=== PATIENT | male | born 1945 | race Caucasian/White ===

== ENCOUNTER 2020-11-16 23:44 | Observation (INO) ==
[2020-11-16] MEDS ORDERED: NITROGLYCERIN SL 0.4 MG/TAB TAB SL PRN (23:58)
[2020-11-17] MEDS ORDERED: NITROGLYCERIN 2% OINTMENT 30GM TUBE ONE ×2 (00:07→06:04)
[2020-11-17] MEDS ORDERED: NITROGLYCERIN 2% OINTMENT 30GM TUBE EXT ONE (00:08)
[2020-11-17 00:24] LABS: Basophils # (auto) 0.02 K/uL (0-0.2); Basophils % (auto) 0.1 %; Eosinophils # (auto) 0.15 K/uL (0-0.5); Eosinophils % (auto) 0.8 %; Hematocrit (blood only) 37.1 % (42-52); Hemoglobin 12.4 g/dL (14.0-18.0); Immature Granulocytes # (auto) 0.07 K/uL (0.00-0.02); Immature Granulocytes % (auto) 0.4 %; Lymphocytes # (auto) 2.04 K/uL (1.2-3.4); Lymphocytes % (auto) 10.6 %; Mean Corpuscular Hemoglobin 35.2 pg (25-34); Mean Corpuscular Hgb Conc 33.4 g/dL (32-36); Mean Corpuscular Volume 105.4 fL (80-100); Mean Platelet Volume 10.9 fL (7.4-10.4); Monocytes # (auto) 2.42 K/uL (0.11-0.59); Monocytes % (auto) 12.6 %; Neutrophils # (auto) 14.49 K/uL (1.4-6.5); Neutrophils % (auto) 75.5 %; Platelet Count 183 K/uL (130-400); RDW Coefficient of Variation 14.4 % (11.5-14.5); RDW Standard Deviation 55.6 fL (36.4-46.3); Red Blood Count 3.52 M/uL (4.7-6.1); White Blood Count 19.19 K/uL (4.8-10.8)
[2020-11-17 00:31] LABS: Alanine Aminotransferase 20 U/L (12-78); Albumin Level 3.9 gm/dl (3.4-5.0); Aspartate Aminotransferase 8 U/L (15-37); BUN Creatinine Ratio 28.1 (10-20); Blood Urea Nitrogen 36 mg/dl (7-18); Calcium 9.4 mg/dl (8.5-10.1); Carbon Dioxide 27 mmol/L (21-32); Chloride 107 mmol/L (98-107); Creatinine Clr Calc Pharmacy 64.8 ml/min; Est GFR (African American) 63.6; Est GFR (Non-African American) 54.9; Glucose 117 mg/dl (70-99); Lipase 91 U/L (73-393); Potassium 3.9 mmol/L (3.5-5.1); Sodium 139 mmol/L (136-145)
[2020-11-17 00:36] LABS: Albumin Globulin Ratio 0.9 (0.9-2); Alkaline Phosphatase 95 U/L (45-117); Bilirubin,Total 0.5 mg/dl (0.2-1); Globulin 4.3 gm/dl (2.5-4.0); Total Protein 8.2 gm/dl (6.4-8.2); Troponin I < 0.015 ng/ml (0-0.045)
[2020-11-17 00:38] LABS: Partial Thromboplastin Ratio 0.9; Partial Thromboplastin Time 25.3 Seconds (21.0-31.0); Prothrombin Time 10.5 Seconds (9.0-12.0)
[2020-11-17] MEDS ORDERED: fentaNYL citrate 100 MCG/2 ML VIAL ONE (00:49)
[2020-11-17] MEDS ORDERED: niCARdipine HCL INJ 2.5 MG/ML 10 ML AMP ONE (00:49)
[2020-11-17] MEDS ORDERED: HEPARIN (PORCINE) 1000 UNIT/ML 10 ML (CATH LAB USE ONLY) ONE (00:49)
[2020-11-17] MEDS ORDERED: MIDAZOLAM HCL 1 MG/ML 2ML VIAL ONE (00:49)
[2020-11-17] MEDS ORDERED: NITROGLYCERIN/D5W 100MCG/ML 20ML SYR ONE (00:49)
[2020-11-17 02:05] LABS: Influenza A virus by PCR Negative (Neg); Influenza B virus by PCR Negative (Neg); RSV by PCR Negative (Neg); SARS CoV2 RNA(COVID-19) InHosp NEGATIVE (Negative)
[2020-11-17] MEDS ORDERED: OPTIRAY 320 125ml IV ONE (03:28)
--- NOTE | 2020-11-17 03:39 | Emergency Department Note ---
Impression & Plan Left-sided chest pain, Abnormal ECG ED Provider Note NAME: CHERIE ZELAYA AGE: 75 SEX: M ARRIVES VIA: Walk-In INFORMANT: Patient ED PROVIDER(S): Ashley Alegria MD CHIEF COMPLAINT: Left-sided chest pain PLAN: Disposition: Inpatient Condition: Fair MEDICAL DECISION MAKING: This patient was evaluated and appeared to be in no significant distress. IV access was obtained and laboratory work was drawn. An order for cardiac monitoring was placed and the patient is noted to be in a normal sinus rhythm at 77 bpm. Patient did take an aspirin earlier in the day. He was given a nitroglycerin tablet with some relief of his discomfort. Nitroglycerin paste was applied to the anterior chest wall. Each was performed and reveals ST elevation in the inferior leads. Previous EKG performed in October also revealed some subtle ST elevation in the inferior leads. The EKG was repeated approximately 10 minutes later and the ST segments remain elevated however there is also a Q wave component. Case was discussed with Dr. Pérez who supported calling a heart alert. Patient's laboratory work reveals a leukocytosis of 19.19, creatinine of 1.27 and a normal troponin of less than 0.015. Patient's initial ID now Covid swab is positive. The [employer] was canceled given the patient is stable and his troponin is normal. PCR quad screen was performed and reveals negative Covid, negative flu and negative RSV. Dr. Luther of the hospitalist service was consulted for admission and further management. Patient is aware of the plan and agrees. Triage Nursing notes reviewed. Prior medical records reviewed Differential diagnosis: Cardiac ischemia, aortic dissection, pulmonary embolism, pneumothorax, pneumonia, pericarditis, myocarditis, esophageal rupture, GERD, cholecystitis, pancreatitis, musculoskeletal, as well as other pathologies. ER treatment provided: Sublingual nitroglycerin Nitroglycerin paste Diagnostics interpreted by me: ECG: Normal sinus rhythm at 82 bpm, ST elevation of 2 mm in the inferior leads with Q waves noted. Normal QTC at 425. No PVC, no PAC. EKG #2: Normal sinus rhythm at 80 bpm, ST elevation persists in the inferior leads with Q waves noted. Normal QTC at 424. No PVC, no PAC. Cardiac Monitoring: An order for cardiac monitoring was placed and the patient is noted to be in a normal sinus rhythm at 77 bpm. Laboratory studies: Troponin is normal, less than 0.015, creatinine 1.27. WBC 19.19 Imaging studies: CTA CHEST: Heart is normal in size. Thoracic aorta appears normal. There is no pulmonary embolism. There is some scab centrilobular and paraseptal bullous changes at the pulmonary apices. There is subsegmental atelectasis at the lung bases. There is no confluent airspace consolidation. Impression: No pulmonary embolism Radiologist: Travon Duarte MD Study ready at 03:31 and initial results transmitted at 03:46 Consultation(s): Interventional cardiology, Dr. Pérez [facility] hospitalist, Dr. Luther HPI: 75/M arrives for evaluation of left-sided chest pain that began later this afternoon at approximately 2-3 PM. He states it was initially intermittent. He cannot correlate it necessarily with exertion. He does believe it was worse with deep inspiration. This evening prior to going to bed he noticed that the pain had returned. He initially thought that the pain would resolve but upon trying to lay down he noticed that the pain persisted. He did come to the hospital by private vehicle. He had taken aspirin 325 mg earlier today. He notes he is on aspirin and Plavix secondary to recent carotid stenting performed at [facility]. He states he had significant bruising of the anterior chest as well as the right groin. The procedure was done at the end of October. Patient denies any recent fevers, chills, cough, abdominal pain, vomiting or diarrhea. ROS: See above HPI for pertinent positives & negatives. A total of 10 systems reviewed and were otherwise negative. PAST MEDICAL HISTORY:See Below PAST SURGICAL HISTORY:See Below FAMILY HISTORY:See Below SOCIAL HISTORY:See Below HOME MEDICATIONS:See Below ALLERGIES:See Below PHYSICAL EXAMINATION: Vital signs reviewed. General: Well-appearing 75-year-old male, in no significant distress HEENT: No scleral icterus, PERRLA, neck supple. Moist mucous membranes. Postsurgical change noted to the right anterior neck. Ecchymosis that appears to be well-healing. Cardiovascular: Regular rate and rhythm, no extra sounds. Pulmonary: Clear to auscultation bilaterally, normal work of breathing. Abdomen: Soft, obese, nontender, nondistended, positive bowel sounds. Musculoskeletal: No peripheral edema. Significant ecchymosis that appears to be healing across the anterior chest/breasts. Nontender to palpation over the anterior chest wall. Neurologic: Patient awake alert and oriented x 3 Skin: Warm, dry, no rash Ashley Alegria MD Past Med/Surg History Medical History BPH (benign prostatic hyperplasia) Carotid atherosclerosis Hypertension Osteoarthritis Surgical History S/P carotid endarterectomy Social History Smoking Status: Former smoker Tobacco Type: Cigarettes Preferred Language: Wolof Feels Safe at Home: Yes Allergies Allergies Allergy/AdvReac Type Severity Reaction Status Date / Time allopurinol Allergy Unknown Verified 11/17/20 00:35 duloxetine [From Cymbalta] Allergy Unknown Verified 11/17/20 00:35 hydroxychloroquine Allergy Unknown Verified 11/17/20 00:35 [From Plaquenil] Home Meds Home Medications Medication Instructions Recorded Confirmed Aspir-Low 81 mg PO DAILY 11/17/20 11/17/20 amlodipine 10 mg PO DAILY 11/17/20 11/17/20 atorvastatin 40 mg PO QPM 11/17/20 11/17/20 clopidogrel 75 mg PO DAILY 11/17/20 11/17/20 finasteride 5 mg PO DAILY 11/17/20 11/17/20 furosemide 20 mg PO DAILY 11/17/20 11/17/20 lisinopril-hydrochlorothiazide 1 tab PO DAILY 11/17/20 11/17/20 probenecid 500 mg PO BID 11/17/20 11/17/20 tamsulosin 0.4 mg PO QPM 11/17/20 11/17/20 Previous Rx's Medication Instructions Recorded methocarbamol 500 mg PO TID PRN #20 tab 10/30/20 Results & Data (ED) Vital Signs Vital Signs - 24 hr 11/16/20 23:52 11/16/20 23:55 11/16/20 23:56 Temperature 36.8 C Temperature Source Oral Pulse Rate 79 77 Pulse Rate from SpO2 Sensor 78 Respiratory Rate 22 17 Respiratory Effort / Characteristics Non-Labored Spontaneous Respiratory Depth Normal Blood Pressure 143/69 H 143/69 H Blood Pressure Mean 93 100 Pulse Oximetry 99 100 100 Oxygen Delivery Method Room Air Room Air Room Air Oxygen Flow Rate Sepsis Recent Fever Within 48 Hours No Sepsis New/Unexplained Change in Mental Status N/A Sepsis Action Taken by Nursing No Action Required 11/16/20 23:58 11/17/20 00:01 11/17/20 00:04 Temperature Temperature Source Pulse Rate 78 78 79 Pulse Rate from SpO2 Sensor 78 79 78 Respiratory Rate 23 25 H 21 Respiratory Effort / Characteristics Respiratory Depth Blood Pressure 169/78 H 161/76 H 141/72 H Blood Pressure Mean 134 108 96 Pulse Oximetry 99 99 99 Oxygen Delivery Method Room Air Room Air Room Air Oxygen Flow Rate Sepsis Recent Fever Within 48 Hours Sepsis New/Unexplained Change in Mental Status Sepsis Action Taken by Nursing 11/17/20 00:33 11/17/20 01:00 11/17/20 01:15 Temperature Temperature Source Pulse Rate 82 74 74 Pulse Rate from SpO2 Sensor 73 74 73 Respiratory Rate 27 H 22 16 Respiratory Effort / Characteristics Respiratory Depth Blood Pressure 150/72 H 165/68 H Blood Pressure Mean 88 106 Pulse Oximetry 100 100 99 Oxygen Delivery Method Room Air Nasal Cannula Nasal Cannula Oxygen Flow Rate 2 2 Sepsis Recent Fever Within 48 Hours Sepsis New/Unexplained Change in Mental Status Sepsis Action Taken by Nursing 11/17/20 01:30 11/17/20 02:14 Temperature Temperature Source Pulse Rate 71 65 Pulse Rate from SpO2 Sensor 71 64 Respiratory Rate 16 18 Respiratory Effort / Characteristics Respiratory Depth Blood Pressure 158/72 H 140/62 Blood Pressure Mean 109 82 Pulse Oximetry 100 100 Oxygen Delivery Method Nasal Cannula Oxygen Flow Rate 2 Sepsis Recent Fever Within 48 Hours Sepsis New/Unexplained Change in Mental Status Sepsis Action Taken by Nursing Laboratory Data Result diagrams: 11/16/20 23:53 11/16/20 23:53 Lab Results 11/16/20 11/16/20 11/16/20 Range/Units 23:53 23:53 23:53 WBC 19.19 H (4.8-10.8) K/uL RBC 3.52 L (4.7-6.1) M/uL Hgb 12.4 L (14.0-18.0) g/dL Hct 37.1 L (42-52) % MCV 105.4 H (80-100) fL MCH 35.2 H (25-34) pg MCHC 33.4 (32-36) g/dL RDW Std Deviation 55.6 H (36.4-46.3) fL RDW Coeff of Maliha 14.4 (11.5-14.5) % Plt Count 183 (130-400) K/uL MPV 10.9 H (7.4-10.4) fL Immature Gran % (Auto) 0.4 % Neut % (Auto) 75.5 % Lymph % (Auto) 10.6 % Ralls % (Auto) 12.6 % Eos % (Auto) 0.8 % Baso % (Auto) 0.1 % Neut # (Auto) 14.49 H (1.4-6.5) K/uL Lymph # (Auto) 2.04 (1.2-3.4) K/uL Ralls # (Auto) 2.42 H (0.11-0.59) K/uL Eos # (Auto) 0.15 (0-0.5) K/uL Baso # (Auto) 0.02 (0-0.2) K/uL Immature Gran # (Auto) 0.07 H (0.00-0.02) K/uL PT 10.5 (9.0-12.0) Seconds INR 1.0 (0.9-1.1) APTT 25.3 (21.0-31.0) Seconds PTT Ratio 0.9 Sodium 139 (136-145) mmol/L Potassium 3.9 (3.5-5.1) mmol/L Chloride 107 (98-107) mmol/L Carbon Dioxide 27 (21-32) mmol/L Anion Gap 5.0 (3-11) BUN 36 H (7-18) mg/dl Creatinine 1.27 (0.6-1.4) mg/dl Est Cr Clr Drug Dosing 64.8 ml/min Est GFR ( Amer) 63.6 Est GFR (Non-Af Amer) 54.9 BUN/Creatinine Ratio 28.1 H (10-20) Glucose 117 H (70-99) mg/dl Calcium 9.4 (8.5-10.1) mg/dl Total Bilirubin 0.5 (0.2-1) mg/dl AST 8 L (15-37) U/L ALT 20 (12-78) U/L Alkaline Phosphatase 95 (45-117) U/L Troponin I < 0.015 (0-0.045) ng/ml Total Protein 8.2 (6.4-8.2) gm/dl Albumin 3.9 (3.4-5.0) gm/dl Globulin 4.3 H (2.5-4.0) gm/dl Albumin/Globulin Ratio 0.9 (0.9-2) Lipase 91 (73-393) U/L COVID-19 Eval Order SARS-CoV-2 (PCR) (Negative) Influenza Type A (PCR) (Neg) Influenza Type B (PCR) (Neg) RSV (RT-PCR) (Neg) SARS-CoV-2, RNA, NAAT (NEGATIVE) 11/17/20 11/17/20 11/17/20 Range/Units 00:34 00:34 01:15 WBC (4.8-10.8) K/uL RBC (4.7-6.1) M/uL Hgb (14.0-18.0) g/dL Hct (42-52) % MCV (80-100) fL MCH (25-34) pg MCHC (32-36) g/dL RDW Std Deviation (36.4-46.3) fL RDW Coeff of Maliha (11.5-14.5) % Plt Count (130-400) K/uL MPV (7.4-10.4) fL Immature Gran % (Auto) % Neut % (Auto) % Lymph % (Auto) % Ralls % (Auto) % Eos % (Auto) % Baso % (Auto) % Neut # (Auto) (1.4-6.5) K/uL Lymph # (Auto) (1.2-3.4) K/uL Ralls # (Auto) (0.11-0.59) K/uL Eos # (Auto) (0-0.5) K/uL Baso # (Auto) (0-0.2) K/uL Immature Gran # (Auto) (0.00-0.02) K/uL PT (9.0-12.0) Seconds INR (0.9-1.1) APTT (21.0-31.0) Seconds PTT Ratio Sodium (136-145) mmol/L Potassium (3.5-5.1) mmol/L Chloride (98-107) mmol/L Carbon Dioxide (21-32) mmol/L Anion Gap (3-11) BUN (7-18) mg/dl Creatinine (0.6-1.4) mg/dl Est Cr Clr Drug Dosing ml/min Est GFR ( Amer) Est GFR (Non-Af Amer) BUN/Creatinine Ratio (10-20) Glucose (70-99) mg/dl Calcium (8.5-10.1) mg/dl Total Bilirubin (0.2-1) mg/dl AST (15-37) U/L ALT (12-78) U/L Alkaline Phosphatase (45-117) U/L Troponin I (0-0.045) ng/ml Total Protein (6.4-8.2) gm/dl Albumin (3.4-5.0) gm/dl Globulin (2.5-4.0) gm/dl Albumin/Globulin Ratio (0.9-2) Lipase (73-393) U/L COVID-19 Eval Order Covid19 [facility] at [facility] SARS-CoV-2 (PCR) (Negative) Influenza Type A (PCR) (Neg) Influenza Type B (PCR) (Neg) RSV (RT-PCR) (Neg) SARS-CoV-2, RNA, NAAT POSITIVE A* (NEGATIVE) 11/17/20 Range/Units 01:15 WBC (4.8-10.8) K/uL RBC (4.7-6.1) M/uL Hgb (14.0-18.0) g/dL Hct (42-52) % MCV (80-100) fL MCH (25-34) pg MCHC (32-36) g/dL RDW Std Deviation (36.4-46.3) fL RDW Coeff of Maliha (11.5-14.5) % Plt Count (130-400) K/uL MPV (7.4-10.4) fL Immature Gran % (Auto) % Neut % (Auto) % Lymph % (Auto) % Ralls % (Auto) % Eos % (Auto) % Baso % (Auto) % Neut # (Auto) (1.4-6.5) K/uL Lymph # (Auto) (1.2-3.4) K/uL Ralls # (Auto) (0.11-0.59) K/uL Eos # (Auto) (0-0.5) K/uL Baso # (Auto) (0-0.2) K/uL Immature Gran # (Auto) (0.00-0.02) K/uL PT (9.0-12.0) Seconds INR (0.9-1.1) APTT (21.0-31.0) Seconds PTT Ratio Sodium (136-145) mmol/L Potassium (3.5-5.1) mmol/L Chloride (98-107) mmol/L Carbon Dioxide (21-32) mmol/L Anion Gap (3-11) BUN (7-18) mg/dl Creatinine (0.6-1.4) mg/dl Est Cr Clr Drug Dosing ml/min Est GFR ( Amer) Est GFR (Non-Af Amer) BUN/Creatinine Ratio (10-20) Glucose (70-99) mg/dl Calcium (8.5-10.1) mg/dl Total Bilirubin (0.2-1) mg/dl AST (15-37) U/L ALT (12-78) U/L Alkaline Phosphatase (45-117) U/L Troponin I (0-0.045) ng/ml Total Protein (6.4-8.2) gm/dl Albumin (3.4-5.0) gm/dl Globulin (2.5-4.0) gm/dl Albumin/Globulin Ratio (0.9-2) Lipase (73-393) U/L COVID-19 Eval Order SARS-CoV-2 (PCR) NEGATIVE (Negative) Influenza Type A (PCR) Negative (Neg) Influenza Type B (PCR) Negative (Neg) RSV (RT-PCR) Negative (Neg) SARS-CoV-2, RNA, NAAT (NEGATIVE) Administered Medications Nitroglycerin (Nitroglycerin Sl 0.4 Mg/Tab Tab) 0.4 mg SL UD PRN PRN Reason: Chest Pain Stop: 12/16/20 23:57 Last Admin: 11/17/20 00:02 Dose: 0.4 mg Documented by: [id number] Discontinued Medications Ioversol (Optiray 320 125ml) 125 ml IV ONCE ONE Stop: 11/17/20 03:29 Last Admin: 11/17/20 03:29 Dose: 93 ml Documented by: [id number] Nitroglycerin (Nitroglycerin 2% Ointment 30gm Tube) Confirm Administered Dose 18 inch .ROUTE .STK-MED ONE Stop: 11/17/20 00:08 Last Admin: 11/17/20 00:08 Dose: 1 inch Documented by: [id number] Nitroglycerin (Nitroglycerin 2% Ointment 30gm Tube) 1 inch EXT NOW ONE Stop: 11/17/20 00:09 Last Admin: 11/17/20 00:13 Dose: Not Given Documented by: [id number] Discharge Plan Visit Data Chief Complaint: Chest Pain Stated Complaint: CHEST PAIN, AND SOB ED Provider: Ashely Alegria Discharge Problem: Left-sided chest pain, Abnormal ECG Patient Disposition: Admitted As Inpatient Forms Stand Alone Forms: [facility] Prescriptions Prescriptions: No Action methocarbamol 500 mg tablet 500 mg PO TID PRN (Reason: muscle spasm) Qty: 20 RF: 0 lisinopril-hydrochlorothiazide 20-12.5 mg tablet 1 tab PO DAILY RF: 0 clopidogrel 75 mg tablet 75 mg PO DAILY RF: 0 amlodipine 10 mg tablet 10 mg PO DAILY RF: 0 furosemide 20 mg tablet 20 mg PO DAILY RF: 0 probenecid 500 mg tablet 500 mg PO BID RF: 0 atorvastatin 40 mg tablet 40 mg PO QPM RF: 0 finasteride 5 mg tablet 5 mg PO DAILY RF: 0 tamsulosin 0.4 mg capsule 0.4 mg PO QPM RF: 0 Aspir-Low 81 mg 81 mg PO DAILY RF: 0 Referrals Referrals: Ck Bell MD [Primary Care Provider] -
--- NOTE | 2020-11-17 04:31 | History and Physical Report ---
DATE OF ADMISSION: 11/17/2020 CHIEF COMPLAINT: Chest pain. HISTORY OF PRESENT ILLNESS: This is a 75-year-old male with past medical history significant for gout, hyperlipidemia, hypertension, chronic kidney disease stage III, paroxysmal supraventricular tachycardia, BPH, bilateral carpal tunnel syndrome, generalized osteoarthritis, degenerative disc disease, cervical impingement syndrome of left shoulder, myelodysplastic syndrome low grade, monocytosis, tobacco abuse, history of recent right common carotid artery stent placement, who presents with chest pain. The patient says since yesterday afternoon, he has on and off chest pain on the left side, roughly up to 8-9 in the night, the pain was constant. The pain is more with deep breath, not associated with any activity. There was no radiation, no sweating. He has some dizziness, some shortness of breath. No cough, no runny nose. He had a sore throat after a recent procedure, but that has resolved. No earache, no loss of sense of smell or taste. No exposure to any COVID patients. Lives with his . Currently, pain is improved. It is only 3/10 in severity when he takes a deep breath. No nausea, no abdominal pain. He was constipated, but it resolved with Metamucil. Denies any blood in the stools or black stools. Normal bladder movements. He has had some swelling in the legs, but it resolved with the Lasix. Ambulating okay at home. ALLERGIES: ALLOPURINOL, CYMBALTA, PLAQUENIL. PAST MEDICAL HISTORY: As mentioned above. PAST SURGICAL HISTORY: Cataract surgery, bilateral colonoscopy, hemorrhoid ligation, carotid stent with distal protection done on 10/27/2020. MEDICATIONS: The patient is currently on amlodipine 10 mg p.o. daily, aspirin 81 mg p.o. daily, atorvastatin 40 mg p.o. daily, Plavix 75 mg p.o. daily, finasteride 5 mg p.o. daily, furosemide 20 mg p.o. daily, lisinopril/hydrochlorothiazide 20/12.5 mg p.o. daily, methocarbamol 500 mg p.o. t.i.d. p.r.n., probenecid 500 mg p.o. b.i.d., Flomax 0.4 mg p.o. p.m. FAMILY HISTORY: Significant for father had pancreatic cancer; mother had heart disorder; sister has mental disorder. SOCIAL HISTORY: Lives with his . Former smoker, quit on 10/09/2020, smoked an average of a quarter pack a day for 60 years. Alcohol occasionally. No drug use. REVIEW OF SYSTEMS: As per HPI. Rest of the review of systems negative. PHYSICAL EXAMINATION: GENERAL: The patient is of moderate build, not in acute distress. VITAL SIGNS: Temperature 36.8, pulse 64, respiratory rate 18, blood pressure 140/62, oxygen 100% on 2 liters. HEENT: Pupils equal, round, reactive to light. Oral mucosa moist. NECK: No JVD, no neck masses seen. CARDIOVASCULAR: S1, S2 heard. Regular rate and rhythm. No murmur, no gallop. RESPIRATORY SYSTEM: Normal AP diameter. No accessory muscle use. No wheezing, no crackles. ABDOMEN: Soft, bowel sounds present, nontender. No distention. CENTRAL NERVOUS SYSTEM: Cranial nerves II-XII grossly intact, nonfocal. EXTREMITIES: No edema, no erythema. SKIN: Some bruises seen on the chest region. LABORATORY DATA: WBC 19, hemoglobin 12.4, hematocrit 37.1, platelets 183. PT 10.5, INR 1, APTT 25.3. Sodium 139, potassium 3.9, chloride 107, bicarbonate 27, BUN 36, creatinine 1.2, serum glucose 117, calcium 9.4, total bilirubin 0.5, AST 8, ALT 20, alkaline phosphatase 95, troponin I less than 0.015. Initial SARS-CoV2 Kumar test was positive, but SARS-CoV-2 PCR with Cepheid was negative. IMAGING: Chest x-ray, no acute findings. CTA of the chest,preliminary report unremarkable. EKG: Normal sinus rhythm at a rate of 82 with some history of questionable ST elevation in the inferior leads. Those ST elevations were there when recent EKG was done on 10/29/2020, but they are more pronounced now. ASSESSMENT AND PLAN: This is a 75-year-old male who presents with chest pain. 1. Chest pain: Started yesterday afternoon. EKG showed some ST elevation in the inferior leads, but the recent EKG on 10/29/[address] elevation in the inferior leads, but there are more pronounced. Cardiac heart alert was called, but because his symptoms are from yesterday afternoon and still his troponin is negative, cath was deferred at this time. The patient currently says pain is more with taking deep breath. His initial COVID test came back positive with Kumar test, but Cepheid test came back negative.And Also CTA chest was negative study. Will Observe in the tele floor. Consult cardiology in the a.m. Serial enzymes, echocardiogram. 2. History of carotid artery stenosis, status post recent right carotid stent. Continue aspirin, Plavix, and statin.Follow up with vascular surgery. 3. History of hypertension: Continue his lisinopril, hydrochlorothiazide, amlodipine. We will monitor his blood pressure. $. Recent epistaxis and skin bruising after the carotid stent. Mostly thought to be from aspirin and Plavix. 4. Hyperlipidemia: Continue statin. 5. Benign prostatic hypertrophy: Continue Proscar and Flomax. 6. Chronic kidney disease stage III: Creatinine is 1.27. We will follow the labs. 7. History of paroxysmal supraventricular tachycardia: We will monitor in the tele. 8. History of gout, on probenecid. 9. Generalized osteoarthritis: Pain control. 10. History of myelodysplastic syndrome, low grade, follow up with PCP. 11. Deep venous thrombosis prophylaxis: Sequential compression devices for now. 12. Disposition: Closely monitor and observe in tele floor. Level 1 full code. Expect to discharge home and follow with family doctor. Addendum: Again complained of chest pain in ER. EKG no change.Repeat troponin pending. Was Placed on nitro paste. Will follow. [facility]
[2020-11-17] MEDS ORDERED: POLYETHYLENE (MIRALAX) 17 GM PACK PO PRN (07:08)
[2020-11-17] MEDS ORDERED: NITROGLYCERIN SL 0.4 MG/TAB TAB SL PRN (07:08)
[2020-11-17] MEDS ORDERED: METHOCARBAMOL 500 MG TABLET PO PRN (07:08)
[2020-11-17] MEDS ORDERED: ONDANSETRON INJ 2 MG/ML 2 ML VIAL IV PRN (07:08)
[2020-11-17] MEDS ORDERED: ACETAMINOPHEN 325 MG TAB PO PRN (07:08)
--- NOTE | 2020-11-17 07:20 | CT Scan Report ---
CT angio chest PE protocol CT DOSE: 735.78 mGy.cm HISTORY: 75 years-old Male with PE. Acute shortness of breath with chest pain and pressure TECHNIQUE: Multiple CTA images of the chest were obtained after the intravenous administration of 93 ml Optiray 320. Coronal and sagittal MIPS were obtained from the axial data set and were submitted f or review. All measurements were obtained according to NASCET criteria. A dose lowering technique wa s utilized adhering to the principles of ALARA. COMPARISON: Chest radiograph of same day FINDINGS: CTA: The heart is mildly enlarged. Moderate coronary artery calcifications. No thoracic aortic aneurysm or dissection. Patency of the imaged great vessels. The pulmonary arterial tree is opacified to the lev el of the segmental branches and demonstrates no filling defects to suggest thromboembolic disease. CT CHEST: Unremarkable thyroid. There is no adenopathy. No pneumothorax, pleural effusion or overt pulmonary ed nikki. Mild emphysema. Bronchial wall thickening suggestive of bronchitis. Dependent subsegmental groun dglass and minimal linear consolidative bibasilar opacities are noted. There are no suspicious pulmon new nodules or masses. Mild tracheobronchial secretions. Tiny hiatal hernia. No acute process of the imaged upper abdomen. Gynecomastia. Bones appear intact. No acute fracture. IMPRESSION: 1. No pulmonary emboli. 2. Emphysema with bronchitis and mild tracheobronchial secretions. 3. Mild dependent bibasilar opacities suggest atelectasis. ACT 112: Negative or not required by law. The above report was generated using voice recognition software. It may contain grammatical, syntax o r spelling errors. Electronically signed by: Alvin Mann M.D. 11/17/2020 7:19 AM
--- NOTE | 2020-11-17 07:56 | XRay Report ---
XR chest 1V portable HISTORY: 75 years-old Male Chest Pain acute atypical chest pain COMPARISON: CTA of the chest of same day TECHNIQUE: Portable AP view of the chest FINDINGS: Cardiac silhouette is upper limits of normal in size. Emphysema. Linear subsegmental bibasilar densit ies/interstitial coarsening. There is no pneumothorax, pleural effusion, or overt pulmonary edema. De generative changes of the shoulders and spine. Mid thoracic dextroscoliosis. IMPRESSION: 1. Linear bibasilar densities suggest atelectasis/scarring. 2. Mild emphysema. ACT 112: Negative or not required by law. The above report was generated using voice recognition software. It may contain grammatical, syntax o r spelling errors. Electronically signed by: Alvin Mann M.D. 11/17/2020 7:54 AM
[2020-11-17 08:01] LABS: Basophils # (auto) 0.01 K/uL (0-0.2); Basophils % (auto) 0.1 %; Eosinophils # (auto) 0.04 K/uL (0-0.5); Eosinophils % (auto) 0.3 %; Hematocrit (blood only) 34.8 % (42-52); Hemoglobin 11.4 g/dL (14.0-18.0); Immature Granulocytes # (auto) 0.03 K/uL (0.00-0.02); Immature Granulocytes % (auto) 0.2 %; Lymphocytes # (auto) 1.08 K/uL (1.2-3.4); Lymphocytes % (auto) 7.2 %; Mean Corpuscular Hemoglobin 34.2 pg (25-34); Mean Corpuscular Hgb Conc 32.8 g/dL (32-36); Mean Corpuscular Volume 104.5 fL (80-100); Mean Platelet Volume 10.7 fL (7.4-10.4); Monocytes # (auto) 1.98 K/uL (0.11-0.59); Monocytes % (auto) 13.2 %; Neutrophils # (auto) 11.88 K/uL (1.4-6.5); Platelet Count 187 K/uL (130-400); RDW Coefficient of Variation 14.3 % (11.5-14.5); Red Blood Count 3.33 M/uL (4.7-6.1); White Blood Count 15.02 K/uL (4.8-10.8)
[2020-11-17 08:35] LABS: BUN Creatinine Ratio 27.7 (10-20); Blood Urea Nitrogen 34 mg/dl (7-18); Calcium 9.8 mg/dl (8.5-10.1); Carbon Dioxide 23 mmol/L (21-32); Chloride 108 mmol/L (98-107); Creatinine Clr Calc Pharmacy 66.8 ml/min; Est GFR (African American) 67.5; Est GFR (Non-African American) 58.2; Glucose 112 mg/dl (70-99); Magnesium 2.1 mg/dl (1.8-2.4); Potassium 4.2 mmol/L (3.5-5.1); Sodium 139 mmol/L (136-145)
[2020-11-17 08:41] LABS: Troponin I < 0.015 ng/ml (0-0.045)
--- NOTE | 2020-11-17 08:47 | Hospitalist Progress Note ---
Date of Service November 17, 2020 Assessment & Plan (1) Left-sided chest pain: (2) Abnormal ECG: (3) BPH (benign prostatic hyperplasia): (4) Hypertension: (5) Carotid atherosclerosis: ASSESSMENT AND PLAN: This is a 75-year-old male who presents with chest pain. 1. Chest pain: Started yesterday afternoon. EKG showed some ST elevation in the inferior leads, but the recent EKG on 10/29/[address] elevation in the inferior leads, but there are more pronounced. Cardiac heart alert was called, but because his symptoms are from yesterday afternoon and still his troponin is negative, cath was deferred at this time. The patient currently says pain is more with taking deep breath. His initial COVID test came back positive with Kumar test, but Cepheid test came back negative. And Also CTA chest was negative study. Will Observe in the tele floor. Cardiology on case. Serial enzymes, No echocardiogram sec to +Covid test even though repeat was neg-w/u in office. 2. History of carotid artery stenosis, status post recent right carotid stent. Continue aspirin, Plavix, and statin. Follow up with vascular surgery. 3. History of hypertension: Continue his lisinopril, hydrochlorothiazide, amlodipine. We will monitor his blood pressure. Recent epistaxis and skin b ruising after the carotid stent. Mostly thought to be from aspirin and Plavix. 4. Hyperlipidemia: Continue statin. 5. Benign prostatic hypertrophy: Continue Proscar and Flomax. 6. Chronic kidney disease stage III: Creatinine is 1.27. We will follow the labs. 7. History of paroxysmal supraventricular tachycardia: We will monitor in the tele. 8. History of gout, on probenecid. 9. Generalized osteoarthritis: Pain control. 10. History of myelodysplastic syndrome, low grade, follow up with PCP. 11. Deep venous thrombosis prophylaxis: Sequential compression devices for now. 12. Disposition: Closely monitor and observe in tele floor. Level 1 full code. Expect to discharge home and follow with family doctor later today. Labs checked ROS-No Headache, No Visual Changes, No Nausea, No Vomiting, No Fever, No Chills, No Neck Pain or Stiffness, +L sided lateral Chest Pain worse c inspiration, No Palpitations, No SOB, No ECHEVERRIA, No Cough, No Sputum, No Wheezing, Mild epigastric Abdominal Pain, No Diarrhea, No Hematemesis, No Hemoptysis, No Unexpected Weight Loss, No Flank pain, No Melena, No Hematochezia, No Frequency, No Urgency, No Burning, No Hematuria, No Rashes, No Diaphoresis. Appetite is Normal Physical Exam Gen-AAO x 3, NAD, Afebrile, CP not reproducible Head-NCAT, EOMI, PERRLA, Anicteric Sclera, No Posterior Pharyngeal Erythema Neck-Supple, No JVD, No Thyromegaly, No Masses, No LAD, No Bruits Lungs-Clear to Auscultation Bilaterally, No Rales, No Rhonchi, No Wheezing, No Crepitus Chest-No S4, +S1, +S2, No S3, No Murmurs, No Rubs, No Gallops, No Ectopy Abdomen-Soft, Bowel Sounds Present, Non Tender, Non Distended, No Hepatomegaly, No Splenomegaly, No Palpable Masses, No Rebound, No Rigidity, No Guarding Musculoskeletal-Full Range of Motion Bilaterally, No CVAT Extremities-No Cyanosis, No Clubbing, No Edema Nuero-Cranial Nerves II-XII grossly intact, Motor WNL, DTRs WNL, Strength WNL, Non Focal Psych-Normal Mood Admission and Anticipated Discharge Date Admission Date: November 17, 2020 Results & Data Results & Data ([facility]) Vital Signs (Past 12 Hours) Vital Signs Temp Pulse Pulse Resp BP BP Pulse Ox 11/17/20 08:31 66 11/17/20 07:08 36.8 C 64 20 99/55 L 96 11/17/20 06:27 36.7 C 66 18 163/75 H 98 11/17/20 05:30 66 17 151/67 H 98 11/17/20 05:00 60 24 144/72 H 97 11/17/20 04:30 66 23 147/72 H 98 11/17/20 04:00 60 20 147/67 H 97 11/17/20 03:00 58 L 24 125/66 96 11/17/20 02:30 61 17 121/64 97 11/17/20 02:14 65 18 140/62 100 11/17/20 01:30 71 16 158/72 H 100 11/17/20 01:15 74 16 99 11/17/20 01:00 74 22 165/68 H 100 11/17/20 00:33 82 27 H 150/72 H 100 11/17/20 00:04 79 21 141/72 H 99 11/17/20 00:01 78 25 H 161/76 H 99 11/16/20 23:58 78 23 169/78 H 99 11/16/20 23:56 100 11/16/20 23:55 77 17 143/69 H 100 11/16/20 23:52 36.8 C 79 22 143/69 H 99
[2020-11-17] MEDS ORDERED: FUROSEMIDE 20 MG TAB PO SCH (09:00)
[2020-11-17] MEDS ORDERED: LISINOPRIL/HCTZ 20/12.5MG 1 TAB TAB PO SCH (09:00)
[2020-11-17] MEDS: ASPIRIN 81 MG ECTAB PO SCH (09:09)
[2020-11-17] MEDS: CLOPIDOGREL BISULFATE 75 MG TAB PO SCH (09:12)
[2020-11-17] MEDS: amLODIPine BESYLATE 5 MG TAB PO SCH (09:12)
[2020-11-17] MEDS: PROBENECID 500 MG TAB PO SCH ×2 (09:13→23:08)
[2020-11-17] MEDS: FINASTERIDE 5 MG TAB PO SCH (09:14)
--- NOTE | 2020-11-17 09:46 | Electrocardiogram Report ---
Test Reason : Blood Pressure : / mmHG Vent. Rate : 082 BPM Atrial Rate : 082 BPM P-R Int : 170 ms QRS Dur : 084 ms QT Int : 364 ms P-R-T Axes : 017 033 068 degrees QTc Int : 425 ms Normal sinus rhythm Inferior infarct , possibly acute Abnormal ECG When compared with ECG of 29-OCT-2020 21:15, Vent. rate has increased BY [address] elevation is more prominent now Confirmed by Freddy Ponce ([id number]) on 11/17/2020 9:45:33 AM Referred By: REFERRED SELF Confirmed By:Freddy Ponce
--- NOTE | 2020-11-17 09:46 | Electrocardiogram Report ---
Test Reason : Blood Pressure : / mmHG Vent. Rate : 080 BPM Atrial Rate : 080 BPM P-R Int : 162 ms QRS Dur : 086 ms QT Int : 368 ms P-R-T Axes : 036 029 067 degrees QTc Int : 424 ms Normal sinus rhythm Inferior infarct (cited on or before 16-NOV-2020) Abnormal ECG When compared with ECG of 16-NOV-2020 23:52, (unconfirmed) No significant change was found Confirmed by Freddy Ponce ([id number]) on 11/17/2020 9:46:11 AM Referred By: REFERRED SELF Confirmed By:Freddy Ponce
--- NOTE | 2020-11-17 09:46 | Electrocardiogram Report ---
Test Reason : Blood Pressure : / mmHG Vent. Rate : 077 BPM Atrial Rate : 077 BPM P-R Int : 178 ms QRS Dur : 084 ms QT Int : 378 ms P-R-T Axes : 048 026 065 degrees QTc Int : 427 ms Normal sinus rhythm Inferior infarct (cited on or before 16-NOV-2020) Abnormal ECG When compared with ECG of 16-NOV-2020 23:53, (unconfirmed) No significant change was found Confirmed by Freddy Ponce ([id number]) on 11/17/2020 9:46:21 AM Referred By: REFERRED SELF Confirmed By:Freddy Ponce
--- NOTE | 2020-11-17 09:49 | Electrocardiogram Report ---
Test Reason : Blood Pressure : / mmHG Vent. Rate : 062 BPM Atrial Rate : 062 BPM P-R Int : 170 ms QRS Dur : 086 ms QT Int : 398 ms P-R-T Axes : 055 023 058 degrees QTc Int : 403 ms Normal sinus rhythm ST elevation consider inferolateral injury or acute infarct Abnormal ECG When compared with ECG of 17-NOV-2020 00:12, (unconfirmed) No significant change was found Confirmed by Freddy Ponce ([id number]) on 11/17/2020 9:49:07 AM Referred By: REFERRED SELF Confirmed By:Freddy Ponce
--- NOTE | 2020-11-17 10:42 | Cardiology Consultation ---
Date of Consultation November 17, 2020 Assessment & Plan (1) Left-sided chest pain: (2) Abnormal ECG: (3) Hypertension: (4) Carotid atherosclerosis: (5) History of tobacco abuse: (6) Hyperlipidemia: (7) Cervical nerve root impingement: It was my pleasure to see Mr. Ornelas in cardiac consultation today. His presentation is rather perplexing given his description of the discomfort, ST segment elevations in the inferior leads without reciprocal changes, initial positive Covid screen and negative troponins x3. He is now ruled out from Covid and an echocardiogram will be obtained. Should any significant wall motion abnormalities be present then consideration will be given to cardiac catheterization versus further ischemic work-up. His blood pressure little on the low side right now and I will give him a bolus of normal saline and for completeness sake he will be started on a heparin drip as well. His outpatient antihypertensives will be held. But his aspirin, atorvastatin and Plavix will be continued uninterrupted. History of Present Illness Reason for Consultation: Chest pain Requesting Physician: Dr. Luther Attending Physician: Adriano Quick, History of Present Illness It was my pleasure to see Mr. Ornelas in cardiac consultation today. He is a 75 -year-old gentleman who presented to the emergency department on 11/16/2020 with complaints of chest discomfort. He states that he was helping his daughter take down [employer] decorations that evening when he suddenly developed chest discomfort. He described it as a achy/sharp sensation that started in his center of his chest and radiated across his left precordium. The onset was also associated with shortness of breath. He denied any associated diaphoresis, nausea, palpitations or lightheadedness. He states that the pain was worse with deep inhalation but not with upper extremity movement. He denied any previous similar episodes. The discomfort continue to wax and wane until his from in the emergency department. Upon arrival his EKG was noted to have ST segment elevations inferiorly without reciprocal changes. His initial troponin was unremarkable and his initial Covid screen came back positive. Given the positive Covid and the fact that his chest discomfort had resolved at that time a heart alert was canceled. He was admitted to telemetry and again he states the discomfort seems to wax and wane overnight again worsened with deep inhalation. He thinks there may been some improvement with the addition of nitro paste. His troponin has been negative x3. Past medical history: 1. Carotid stenosis status post stenting 2. Tobacco abuse 3. Asymptomatic PSVT 4. Cervical impingement syndrome 5. Myelodysplastic syndrome low-grade 6. Hypertension 7. Dyslipidemia Allergies Allergy/AdvReac Type Severity Reaction Status Date / Time allopurinol Allergy Unknown Verified 11/17/20 00:35 duloxetine [From Cymbalta] Allergy Unknown Verified 11/17/20 00:35 hydroxychloroquine Allergy Unknown Verified 11/17/20 00:35 [From Plaquenil] Home Medications Medication Instructions Recorded Confirmed Type methocarbamol 500 mg PO TID PRN #20 tab 10/30/20 11/17/20 Rx Aspir-Low 81 mg PO DAILY 11/17/20 11/17/20 History amlodipine 10 mg PO DAILY 11/17/20 11/17/20 History atorvastatin 40 mg PO QPM 11/17/20 11/17/20 History clopidogrel 75 mg PO DAILY 11/17/20 11/17/20 History finasteride 5 mg PO DAILY 11/17/20 11/17/20 History furosemide 20 mg PO DAILY 11/17/20 11/17/20 History lisinopril-hydrochlorothiazide 1 tab PO DAILY 11/17/20 11/17/20 History probenecid 500 mg PO BID 11/17/20 11/17/20 History tamsulosin 0.4 mg PO QPM 11/17/20 11/17/20 History Patient History Medical History BPH (benign prostatic hyperplasia) Carotid atherosclerosis Hypertension Osteoarthritis Surgical History S/P carotid endarterectomy Social History Smoking Status: Former smoker Tobacco Type: Cigarettes Hx Alcohol Use: No Hx Substance Use: No Preferred Language: Kinyarwanda Communication Ability: Effective Beliefs That Will Affect Care: None Current Living Situation: Spouse Other Information That Helps Us Care for You: Yes Feels Safe at Home: Yes Safety Concerns: Feels Safe At This Time Assistive Devices: Denture - Upper, Denture - Lower, Hearing Aid - Left and Hearing Aid - Right Review of Systems Review of Systems: All systems reviewed & are unremarkable except as noted in HPI & below Physical Exam Physical Exam: General: Awake, alert and oriented x 3. No acute distress. HEENT: Normocephalic, atraumatic. Pupils equal, round and reactive to light and accommodation. Extraocular muscles are intact. Anicteric sclera. Moist mucous membranes. Neck: No JVD. No bruit. Cardiovascular: Regular. Positive S-4. Normal S-1 and S-2. No S-3. No murmurs or rubs. Pulmonary: Clear to auscultation B/L. No rales, rhonchi or wheezing Abdomen: Bowel sounds x 4, soft. No rebound, guarding or tenderness. No organomegaly. Extremities: No clubbing, cyanosis or edema. +2 pedal pulses bilaterally. Skin: Warm and dry. Results & Data ([facility]) Vital Signs (Past 12 Hours) Vital Signs Temp Pulse Pulse Resp BP BP Pulse Ox 11/17/20 09:15 93/52 L 11/17/20 08:31 66 11/17/20 07:08 36.8 C 64 20 99/55 L 96 11/17/20 06:27 36.7 C 66 18 163/75 H 98 11/17/20 05:30 66 17 151/67 H 98 11/17/20 05:00 60 24 144/72 H 97 11/17/20 04:30 66 23 147/72 H 98 11/17/20 04:00 60 20 147/67 H 97 11/17/20 03:00 58 L 24 125/66 96 11/17/20 02:30 61 17 121/64 97 11/17/20 02:14 65 18 140/62 100 11/17/20 01:30 71 16 158/72 H 100 11/17/20 01:15 74 16 99 11/17/20 01:00 74 22 165/68 H 100 11/17/20 00:33 82 27 H 150/72 H 100 11/17/20 00:04 79 21 141/72 H 99 11/17/20 00:01 78 25 H 161/76 H 99 11/16/20 23:58 78 23 169/78 H 99 11/16/20 23:56 100 11/16/20 23:55 77 17 143/69 H 100 11/16/20 23:52 36.8 C 79 22 143/69 H 99 Pulse Ox 11/17/20 09:15 11/17/20 08:31 11/17/20 07:08 96 11/17/20 06:27 11/17/20 05:30 11/17/20 05:00 11/17/20 04:30 11/17/20 04:00 11/17/20 03:00 11/17/20 02:30 11/17/20 02:14 11/17/20 01:30 11/17/20 01:15 11/17/20 01:00 11/17/20 00:33 11/17/20 00:04 11/17/20 00:01 11/16/20 23:58 11/16/20 23:56 11/16/20 23:55 11/16/20 23:52
[2020-11-17] MEDS ORDERED: HEPARIN SOD (PORCINE) 1000 UNIT/ML 10 ML VIAL ONE (10:55)
[2020-11-17] MEDS ORDERED: HEPARIN IV BOLUS 7,000 UNITS in SYRINGE 0 ML IV ONE (11:00)
[2020-11-17] MEDS: HEPARIN SODIUM/DEXTROSE 25,000 UNITS/500 ML BAG IV SCH (11:05)
[2020-11-17] MEDS ORDERED: SODIUM CHLORIDE 0.9% 1000ML 500 ML IV ONE (12:59)
[2020-11-17] MEDS: CYCLOBENZAPRINE HCL 10 MG TAB PO SCH ×2 (15:42→21:35)
[2020-11-17 17:46] LABS: Partial Thromboplastin Ratio 3.8
[2020-11-17] MEDS: TAMSULOSIN HCL 0.4 MG CAP PO SCH (21:35)
[2020-11-17] MEDS: ATORVASTATIN 40 MG TAB PO SCH (21:35)
[2020-11-18 02:26] LABS: Hematocrit (blood only) 32.1 % (42-52); Hemoglobin 10.7 g/dL (14.0-18.0); Mean Corpuscular Hemoglobin 34.6 pg (25-34); Mean Corpuscular Hgb Conc 33.3 g/dL (32-36); Mean Corpuscular Volume 103.9 fL (80-100); Mean Platelet Volume 10.6 fL (7.4-10.4); Platelet Count 164 K/uL (130-400); RDW Coefficient of Variation 14.3 % (11.5-14.5); RDW Standard Deviation 54.3 fL (36.4-46.3); Red Blood Count 3.09 M/uL (4.7-6.1); White Blood Count 14.08 K/uL (4.8-10.8)
[2020-11-18 02:45] LABS: BUN Creatinine Ratio 28.3 (10-20); Calcium 9.1 mg/dl (8.5-10.1); Creatinine Clr Calc Pharmacy 58.1 ml/min; Est GFR (African American) 57.1; Est GFR (Non-African American) 49.2; Potassium 4.1 mmol/L (3.5-5.1)
[2020-11-18 02:58] LABS: Partial Thromboplastin Ratio 2.9
[2020-11-18 03:11] LABS: Partial Thromboplastin Time 80.4 Seconds (21.0-31.0)
[2020-11-18] MEDS: HEPARIN SODIUM/DEXTROSE 25,000 UNITS/500 ML BAG IV SCH ×2 (03:32→23:23)
[2020-11-18] MEDS: CYCLOBENZAPRINE HCL 10 MG TAB PO SCH ×3 (08:41→20:18)
[2020-11-18] MEDS: amLODIPine BESYLATE 5 MG TAB PO SCH (08:41)
[2020-11-18] MEDS: ASPIRIN 81 MG ECTAB PO SCH (09:34)
[2020-11-18] MEDS: PROBENECID 500 MG TAB PO SCH ×2 (09:34→20:18)
[2020-11-18] MEDS: FINASTERIDE 5 MG TAB PO SCH (09:34)
[2020-11-18] MEDS: CLOPIDOGREL BISULFATE 75 MG TAB PO SCH (09:34)
[2020-11-18 09:55] LABS: Partial Thromboplastin Ratio 2.6
[2020-11-18 10:03] LABS: Partial Thromboplastin Time 71.7 Seconds (21.0-31.0)
--- NOTE | 2020-11-18 10:46 | Hospitalist Progress Note ---
Date of Service November 18, 2020 Assessment & Plan (1) Left-sided chest pain: (2) Abnormal ECG: (3) BPH (benign prostatic hyperplasia): (4) Hypertension: (5) Carotid atherosclerosis: ASSESSMENT AND PLAN: This is a 75-year-old male who presents with chest pain. 1. Chest pain: Started 1 day [employer]. EKG showed some ST elevation in the inferior leads, but the recent EKG on 10/29/[address] elevation in the inferior leads, but there are more pronounced. Cardiac heart alert was called, but because his symptoms are from yesterday afternoon and still his troponin is negative, cath was deferred. The patient said pain is more with taking deep breath. His initial COVID test came back positive with Kumar test, but Cepheid test came back negative. And Also CTA chest was negative study. Cardiology on case. Serial enzymes all neg, Echocardiogram was relatively normal c some grade I Diastolic Dysfunction, Stress test for today 2. History of carotid artery stenosis, status post recent right carotid stent. Continue aspirin, Plavix, and statin. Follow up with vascular surgery. 3. History of hypertension: Continue his lisinopril, hydrochlorothiazide, amlodipine. We will monitor his blood pressure. Recent epistaxis and skin bruising after the carotid stent. Mostly thought to be from aspirin and Plavix. 4. Hyperlipidemia: Continue statin. 5. Benign prostatic hypertrophy: Continue Proscar and Flomax. 6. Chronic kidney disease stage III: Creatinine is 1.27. We will follow the labs. 7. History of paroxysmal supraventricular tachycardia: We will monitor in the tele. 8. History of gout, on probenecid. 9. Generalized osteoarthritis: Pain control. 10. History of myelodysplastic syndrome, low grade, follow up with PCP. 11. Deep venous thrombosis prophylaxis: Sequential compression devices for now. 12. Disposition: Closely monitor and observe in tele floor. Level 1 full code. Expect to discharge home and follow with family doctor later today. WBCs elevated and declining wo abx Labs checked ROS-No Headache, No Visual Changes, No Nausea, No Vomiting, No Fever, No Chills, No Neck Pain or Stiffness, +L sided lateral Chest Pain worse c inspiration, No Palpitations, No SOB, No ECHEVER[place]A, No Cough, No Sputum, No Wheezing, Mild epigastric Abdominal Pain, No Diarrhea, No Hematemesis, No Hemoptysis, No Unexpected Weight Loss, No Flank pain, No Melena, No Hematochezia, No Frequency, No Urgency, No Burning, No Hematuria, No Rashes, No Diaphoresis. Appetite is Normal Physical Exam Gen-AAO x 3, NAD, Afebrile, CP not reproducible Head-NCAT, EOMI, PERRLA, Anicteric Sclera, No Posterior Pharyngeal Erythema Neck-Supple, No JVD, No Thyromegaly, No Masses, No LAD, No Bruits Lungs-Clear to Auscultation Bilaterally, No Rales, No Rhonchi, No Wheezing, No Crepitus Chest-No S4, +S1, +S2, No S3, No Murmurs, No Rubs, No Gallops, No Ectopy Abdomen-Soft, Bowel Sounds Present, Non Tender, Non Distended, No Hepatomegaly, No Splenomegaly, No Palpable Masses, No Rebound, No Rigidity, No Guarding Musculoskeletal-Full Range of Motion Bilaterally, No CVAT Extremities-No Cyanosis, No Clubbing, No Edema Nuero-Cranial Nerves II-XII grossly intact, Motor WNL, DTRs WNL, Strength WNL, Non Focal Psych-Normal Mood Admission and Anticipated Discharge Date Admission Date: November 17, 2020 Results & Data Results & Data ([facility]) Vital Signs (Past 12 Hours) Vital Signs Temp Pulse Pulse Resp BP Pulse Ox 11/18/20 07:56 36.8 C 66 18 115/53 L 97 11/18/20 04:38 37.0 C 70 19 125/72 95 11/18/20 00:15 36.7 C 63 19 126/62 95 11/17/20 23:00 65
[2020-11-18] MEDS ORDERED: cefTRIAXone SODIUM 1,000 MG in DEXTROSE 5% 50 ML IV SCH (11:00)
[2020-11-18 11:28] LABS: Influenza A virus by PCR Negative (Neg); Influenza B virus by PCR Negative (Neg); RSV by PCR Negative (Neg); SARS CoV2 RNA(COVID-19) InHosp NEGATIVE (Negative)
[2020-11-18] MEDS: cefTRIAXone SODIUM 2,000 MG in DEXTROSE 5% 50 ML IV SCH (11:28)
--- NOTE | 2020-11-18 13:00 | Cardiology Progress Note ---
Date of Service November 18, 2020 Assessment & Plan (1) Left-sided chest pain: (2) Abnormal ECG: (3) Hypertension: (4) Carotid atherosclerosis: (5) History of tobacco abuse: (6) Hyperlipidemia: (7) Cervical nerve root impingement: Stress testing delayed to repeat Covid testing which came back negative. Echocardiogram without significant wall motion abnormalities and troponins negative. Heparin will be discontinued. Plan for Lexiscan nuclear stress test in the a.m. His outpatient antihypertensives will be held. But his aspirin, atorvastatin and Plavix will be continued uninterrupted. (8) Lab test positive for detection of COVID-19 virus: Admission and Anticipated Discharge Date Admission Date: November 17, 2020 Subjective Patient seen and examined, chart reviewed. Stress testing was delayed so that repeat Covid testing could be obtained given the initial positive result. Clinically patient states he feels well. Still occasional achy chest discomfort with deep inhalation. Is having significant neck pain as well which is chronic due to a cervical impingement. Telemetry reviewed: Normal sinus rhythm without arrhythmia or significant ectopy. Review of Systems Review of Systems: All systems reviewed & are unremarkable except as noted in HPI & below Physical Exam Physical Exam: General: Awake, alert and oriented x 3. No acute distress. HEENT: Normocephalic, atraumatic. Pupils equal, round and reactive to light and accommodation. Extraocular muscles are intact. Anicteric sclera. Moist mucous membranes. Neck: No JVD. No bruit. Cardiovascular: Regular. Positive S-4. Normal S-1 and S-2. No S-3. No murmurs or rubs. Pulmonary: Clear to auscultation B/L. No rales, rhonchi or wheezing Abdomen: Bowel sounds x 4, soft. No rebound, guarding or tenderness. No o rganomegaly. Extremities: No clubbing, cyanosis or edema. +2 pedal pulses bilaterally. Skin: Warm and dry. Results & Data ([facility]) Vital Signs (Past 12 Hours) Vital Signs Temp Pulse Resp BP Pulse Ox 11/18/20 11:40 36.2 C L 65 20 149/75 H 97 11/18/20 07:56 36.8 C 66 18 115/53 L 97 11/18/20 04:38 37.0 C 70 19 125/72 95
--- NOTE | 2020-11-18 15:31 | Electrocardiogram Report ---
Test Reason : Blood Pressure : / mmHG Vent. Rate : 063 BPM Atrial Rate : 063 BPM P-R Int : 160 ms QRS Dur : 086 ms QT Int : 392 ms P-R-T Axes : 058 053 069 degrees QTc Int : 401 ms Normal sinus rhythm Acute Inferior infarct Abnormal ECG When compared with ECG of 17-NOV-2020 06:01, No significant change was found Confirmed by Roger Guerra ([id number]) on 11/18/2020 3:30:37 PM Referred By: REFERRED SELF Confirmed By:Roger Guerra
[2020-11-18 17:01] LABS: Partial Thromboplastin Time 55.9 Seconds (21.0-31.0)
[2020-11-18] MEDS: ATORVASTATIN 40 MG TAB PO SCH (20:18)
[2020-11-18] MEDS: TAMSULOSIN HCL 0.4 MG CAP PO SCH (20:18)
[2020-11-19 05:29] LABS: Hematocrit (blood only) 30.7 % (42-52); Hemoglobin 10.2 g/dL (14.0-18.0); Mean Corpuscular Hemoglobin 34.6 pg (25-34); Mean Corpuscular Hgb Conc 33.2 g/dL (32-36); Mean Corpuscular Volume 104.1 fL (80-100); Mean Platelet Volume 10.9 fL (7.4-10.4); Platelet Count 155 K/uL (130-400); RDW Coefficient of Variation 14.4 % (11.5-14.5); RDW Standard Deviation 54.7 fL (36.4-46.3); Red Blood Count 2.95 M/uL (4.7-6.1); White Blood Count 12.58 K/uL (4.8-10.8)
[2020-11-19 06:05] LABS: BUN Creatinine Ratio 28.5 (10-20); Creatinine Clr Calc Pharmacy 68.6 ml/min; Est GFR (African American) 69.5; Potassium 3.8 mmol/L (3.5-5.1)
[2020-11-19] MEDS: ATORVASTATIN 40 MG TAB PO SCH (07:30)
[2020-11-19] MEDS: CYCLOBENZAPRINE HCL 10 MG TAB PO SCH ×2 (07:30→13:49)
[2020-11-19] MEDS: CLOPIDOGREL BISULFATE 75 MG TAB PO SCH (07:30)
[2020-11-19] MEDS: ASPIRIN 81 MG ECTAB PO SCH (07:30)
[2020-11-19] MEDS ORDERED: REGADENOSON 0.4 MG/5 ML SYR IV ONE (09:13)
[2020-11-19] MEDS: TAMSULOSIN HCL 0.4 MG CAP PO SCH (10:42)
[2020-11-19] MEDS: amLODIPine BESYLATE 5 MG TAB PO SCH (10:42)
[2020-11-19] MEDS: PROBENECID 500 MG TAB PO SCH (10:43)
[2020-11-19] MEDS: FINASTERIDE 5 MG TAB PO SCH (10:43)
[2020-11-19] MEDS: cefTRIAXone SODIUM 2,000 MG in DEXTROSE 5% 50 ML IV SCH (11:43)
[2020-11-19] MEDS ORDERED: traMADol HCL 50 MG TABLET PO STA (11:51)
[2020-11-19] MEDS ORDERED: DOXYCYCLINE HYCLATE 100 MG CAP PO SCH (12:00)
[2020-11-19] MEDS ORDERED: BACLOFEN 10 MG TAB PO ONE (12:39)
--- NOTE | 2020-11-19 12:50 | Myocardial Perfusion Study ---
Date of Service November 19, 2020 Myocardial Perfusion Study k Myocardial Perfusion Study Report [place] Act 112: Negative Procedure: 1. Myocardial perfusion study performed in multiple views/images 2. Lexiscan pharmacologic stress ECG Indications: 1. Exertional chest discomfort with history of peripheral arterial disease Ordering physician: Dr. Coburn Procedural details: For the stress portion of the study, Lexiscan 0.4 mg was intravenously administered followed by a saline flush. This was followed by 32.9 mCi of technetium 99m Cardiolite, injected at 0933 on 11/19/2020. 30 minutes following the injection, imaging of the heart was performed in multiple projections. For the rest portion of the study, 10.2 mCi technetium 99m Cardiolite was injected intravenously at 0747 on 11/19/2020. 1 hour following the injection, imaging of the heart was performed in the same projections. Lexiscan stress ECG: No ischemic changes Resting ECG demonstrated: Normal sinus rhythm with diffuse nonspecific ST segment elevations Maximum heart rate: 83 bpm Maximal, age-predicted heart rate: 57% Resting blood pressure: 1 37/62 mmHg Maximum blood pressure: 137/[address] changes: None Arrhythmia: None Symptoms: Nausea Findings: Rotating raw imaging demonstrated no significant lung uptake. There is no significant motion artifact. Heart size appeared normal. Myocardial perfusion demonstrated normal perfusion. Ejection fraction: 58% Wall motion: Normal No significant transient ischemic dilation. Impression: 1. Normal Lexiscan nuclear stress test. Normal perfusion of the myocardium. Normal LV systolic function with an EF calculated to be 58%.
--- NOTE | 2020-11-19 12:51 | Cardiology Progress Note ---
Date of Service November 19, 2020 Assessment & Plan (1) Left-sided chest pain: (2) Abnormal ECG: (3) Hypertension: (4) Carotid atherosclerosis: (5) History of tobacco abuse: (6) Hyperlipidemia: (7) Cervical nerve root impingement: Nonischemic nuclear stress test. Chest discomfort likely secondary to a cervical nerve root impingement. Okay to DC to home. Continue current outpatient medical regimen. Follow-up with cardiology in 1 month. (8) Lab test positive for detection of COVID-19 virus: Admission and Anticipated Discharge Date Admission Date: November 17, 2020 Subjective Patient seen and examined, chart reviewed. Third COVID-19 test came back negative. Clinically patient states he feels well. Pleuritic chest discomfort has resolved. Is having significant neck pain as well which is chronic due to a cervical impingement. Telemetry reviewed: Normal sinus rhythm without arrhythmia or significant ectopy. Review of Systems Review of Systems: All systems reviewed & are unremarkable except as noted in HPI & below Physical Exam Physical Exam: General: Awake, alert and oriented x 3. No acute distress. HEENT: Normocephalic, atraumatic. Pupils equal, round and reactive to light and accommodation. Extraocular muscles are intact. Anicteric sclera. Moist mucous membranes. Neck: No JVD. No bruit. Cardiovascular: Regular. Positive S-4. Normal S-1 and S-2. No S-3. No murmurs or rubs. Pulmonary: Clear to auscultation B/L. No rales, rhonchi or wheezing Abdomen: Bowel sounds x 4, soft. No rebound, guarding or tenderness. No organomegaly. Extremities: No clubbing, cyanosis or edema. +2 pedal pulses bilaterally. Skin: Warm and dry. Results & Data ([facility] [place]) Vital Signs (Past 12 Hours) Vital Signs Temp Pulse Pulse Resp BP Pulse Ox 11/19/20 10:44 36.4 C L 74 154/70 H 100 11/19/20 08:30 36.5 C 18 115/60 95 11/19/20 03:01 36.9 C 66 18 142/70 H 97
--- NOTE | 2020-11-19 13:37 | Hospitalist Progress Note ---
Date of Service November 19, 2020 Assessment & Plan (1) Left-sided chest pain: (2) Abnormal ECG: Present on admission with chest pain EKG showed some ST elevation in the inferior leads, but the recent EKG on 10/29/[address] elevation in the inferior leads, but there are more pronounced. Heart alert was called on presentation, but because his symptoms are from yesterday afternoon and still his troponin is negative, cath was deferred. His initial COVID test came back positive with Kumar test, but Cepheid test came back negative. CTA chest was negative for PE Troponin x 5 negative Pt was starting on IV heparin drip, then discontinued Echo showed normal LV chamber size with moderate concentric LVH. Normal LV systolic function. Ejection fraction 60 to 65%. No segmental left ventricular wall motion abnormality. Grade I Diastolic Dysfunction Nonischemic nuclear stress test done today Continue aspirin, plavix and statin Case discussed with cardiology Ok from cardiology standpoint to discharge home Follow up with cardiology in 1 month (3) BPH (benign prostatic hyperplasia): Continue Proscar and Flomax. (4) Hypertension: Continue his lisinopril, hydrochlorothiazide, amlodipine. Continue monitor BP (5) Carotid atherosclerosis: status post recent right carotid stent. Continue aspirin, Plavix, and statin. Will monitor closely for any nose bleeding. Follow up with vascular surgery. Abnormal COVID 19 positive Repeat COVID 19 PCR x2 negative Advised pt to continue wearing face mask Hyperlipidemia Continue statin. Bronchitis CTA chest showed emphysema with bronchitis and mild tracheobronchial secretions. WBC elevated Rocephin was started Will transition to doxycycline Continue monitor Chronic kidney disease stage III Creatinine is 1.18 Continue monitor BMP Stable History of gout Continue probenecid. Generalized osteoarthritis Neck Pain Continue pain control. Continue Cyclobenzeprine Myelodysplastic syndrome Stable Continue follow up with the PCP Deep venous thrombosis prophylaxis On SCDs now, but was on heparin drip Disposition Discharge home today Follow up with your primary care provider on 11/20 Admission and Anticipated Discharge Date Admission Date: November 17, 2020 Subjective Pt was seen and examined for follow up chest pain Lying in bed with no distress Pt said he feels better He said that he continues to have neck pain that is chronic He said that physical therapy seems to help with the neck pain Currently denies any chest pain, palpitation, dizziness and fever Physical Exam Physical Exam: General- No acute distress Head- atraumatic Eyes- PERRL, EOMI, ENT- oropharynx clear Neck- supple, no JVD Lungs- clear to auscultation Heart- regular rhythm; no murmur Abdomen- normal bowel sounds, soft, nontender Extremities- no calf tenderness Neuro- alert, oriented x 3; PERRL, EOMI; no facial palsy; no dysarthria Skin- warm & dry Results & Data Results & Data ([facility]) Vital Signs (Past 12 Hours) Vital Signs Temp Pulse Pulse Resp BP Pulse Ox 11/19/20 10:44 36.4 C L 74 154/70 H 100 11/19/20 08:30 36.5 C 18 115/60 95 11/19/20 03:01 36.9 C 66 18 142/70 H 97
--- NOTE | 2020-11-20 13:06 | Electrocardiogram Report ---
Test Reason : Blood Pressure : / mmHG Vent. Rate : 057 BPM Atrial Rate : 057 BPM P-R Int : 160 ms QRS Dur : 084 ms QT Int : 404 ms P-R-T Axes : 060 062 067 degrees QTc Int : [address] elevation, consider early repolarization, pericarditis, or injury Abnormal ECG When compared with ECG of 18-NOV-2020 12:40, No significant change was found Confirmed by Freddy Ponce ([id number]) on 11/20/2020 1:06:12 PM Referred By: REFERRED SELF Confirmed By:Freddy Ponce
--- NOTE | 2020-11-22 08:04 | Discharge Summary ---
Date of Service November 19, 2020 Admission HPI Per Admitting Provider CHIEF COMPLAINT: Chest pain. HISTORY OF PRESENT ILLNESS: This is a 75-year-old male with past medical history significant for gout, hyperlipidemia, hypertension, chronic kidney disease stage III, paroxysmal supraventricular tachycardia, BPH, bilateral carpal tunnel syndrome, generalized osteoarthritis, degenerative disc disease, cervical impingement syndrome of left shoulder, myelodysplastic syndrome low grade, monocytosis, tobacco abuse, history of recent right common carotid artery stent placement, who presents with chest pain. The patient says since yesterday afternoon, he has on and off chest pain on the left side, roughly up to 8-9 in the night, the pain was constant. The pain is more with deep breath, not associated with any activity. There was no radiation, no sweating. He has some dizziness, some shortness of breath. No cough, no runny nose. He had a sore throat after a recent procedure, but that has resolved. No earache, no loss of sense of smell or taste. No exposure to any COVID patients. Lives with his . Currently, pain is improved. It is only 3/10 in severity when he takes a deep breath. No nausea, no abdominal pain. He was constipated, but it resolved with Metamucil. Denies any blood in the stools or black stools. Normal bladder movements. He has had some swelling in the legs, but it resolved with the Lasix. Ambulating okay at home. Admission Exam Per Admitting Provider GENERAL: The patient is of moderate build, not in acute distress. VITAL SIGNS: Temperature 36.8, pulse 64, respiratory rate 18, blood pressure 140/62, oxygen 100% on 2 liters. HEENT: Pupils equal, round, reactive to light. Oral mucosa moist. NECK: No JVD, no neck masses seen. CARDIOVASCULAR: S1, S2 heard. Regular rate and rhythm. No murmur, no gallop. RESPIRATORY SYSTEM: Normal AP diameter. No accessory muscle use. No wheezing, no crackles. ABDOMEN: Soft, bowel sounds present, nontender. No distention. CENTRAL NERVOUS SYSTEM: Cranial nerves II-XII grossly intact, nonfocal. EXTREMITIES: No edema, no erythema. SKIN: Some bruises seen on the chest region. Principal Diagnosis (1) Left-sided chest pain: (2) Abnormal ECG: (3) BPH (benign prostatic hyperplasia): (4) Hypertension: (5) Carotid atherosclerosis: (6) Hyperlipidemia (7) Bronchitis (8) History of gout (9) Neck Pain Discharge Exam General- No acute distress Head- atraumatic Eyes- PERRL, EOMI, ENT- oropharynx clear Neck- supple, no JVD Lungs- clear to auscultation Heart- regular rhythm; no murmur Abdomen- normal bowel sounds, soft, nontender Extremities- no calf tenderness Neuro- alert, oriented x 3; PERRL, EOMI; no facial palsy; no dysarthria Skin- warm & dry Discharge Data Allergies Allergy/AdvReac Type Severity Reaction Status Date / Time allopurinol Allergy Unknown Verified 11/17/20 00:35 duloxetine [From Cymbalta] Allergy Unknown Verified 11/17/20 00:35 hydroxychloroquine Allergy Unknown Verified 11/17/20 00:35 [From Plaquenil] Consultations 11/17/20 00:42 ED Decision to Admit Stat 11/17/20 07:08 Consult Case Management - Discharge Planning Routine 11/17/20 08:00 Consult Cardiology Routine Procedures Performed Operation Date: 11/17/20 00:45 Actual Procedures p Aspiration/PCI w/BRENDEN for Stemi - Robert Pérez MD Ordered Studies 11/17/20 00:43 CL Cath Imgs for PACS use only Stat 11/17/20 02:14 CT angio chest PE protocol Urgent Date of Service November 19, 2020 Myocardial Perfusion Study Blk Myocardial Perfusion Study Report PA Act 112: Negative Procedure: 1. Myocardial perfusion study performed in multiple views/images 2. Lexiscan pharmacologic stress ECG Indications: 1. Exertional chest discomfort with history of peripheral arterial disease Ordering physician: Dr. Coburn Procedural details: For the stress portion of the study, Lexiscan 0.4 mg was intravenously administered followed by a saline flush. This was followed by 32.9 mCi of technetium 99m Cardiolite, injected at 0933 on 11/19/2020. 30 minutes following the injection, imaging of the heart was performed in multiple projections. For the rest portion of the study, 10.2 mCi technetium 99m Cardiolite was injected intravenously at 0747 on 11/19/2020. 1 hour following the injection, imaging of the heart was performed in the same projections. Lexiscan stress ECG: No ischemic changes Resting ECG demonstrated: Normal sinus rhythm with diffuse nonspecific ST segment elevations Maximum heart rate: 83 bpm Maximal, age-predicted heart rate: 57% Resting blood pressure: 1 37/62 mmHg Maximum blood pressure: 137/[address] changes: None Arrhythmia: None Symptoms: Nausea Findings: Rotating raw imaging demonstrated no significant lung uptake. There is no significant motion artifact. Heart size appeared normal. Myocardial perfusion demonstrated normal perfusion. Ejection fraction: 58% Wall motion: Normal No significant transient ischemic dilation. Impression: 1. Normal Lexiscan nuclear stress test. Normal perfusion of the myocardium. Normal LV systolic function with an EF calculated to be 58%. Signed By:<Electronically signed by Gee Coburn DO>{f rep sign date/time 1]Created/Dictated: 11/19/201246Transcribed: 11/19/201246 CT angio chest PE protocol CT DOSE: 735.78 mGy.cm HISTORY: 75 years-old Male with PE. Acute shortness of breath with chest pain and pressure TECHNIQUE: Multiple CTA images of the chest were obtained after the intravenous administration of 93 ml Optiray 320. Coronal and sagittal MIPS were obtained from the axial data set and were submitted for review. All measurements were obtained according to NASCET criteria. A dose lowering technique was utilized adhering to the principles of ALARA. COMPARISON: Chest radiograph of same day FINDINGS: CTA: The heart is mildly enlarged. Moderate coronary artery calcifications. No thoracic aortic aneurysm or dissection. Patency of the imaged great vessels. The pulmonary arterial tree is opacified to the level of the segmental branches and demonstrates no filling defects to suggest thromboembolic disease. CT CHEST: Unremarkable thyroid. There is no adenopathy. No pneumothorax, pleural effusion or overt pulmonary edema. Mild emphysema. Bronchial wall thickening suggestive of bronchitis. Dependent subsegmental groundglass and minimal linear consolidative bibasilar opacities are noted. There are no suspicious pulmonary nodules or masses. Mild tracheobronchial secretions. Tiny hiatal hernia. No acute process of the imaged upper abdomen. Gynecomastia. Bones appear intact. No acute fracture. IMPRESSION: 1. No pulmonary emboli. 2. Emphysema with bronchitis and mild tracheobronchial secretions. 3. Mild dependent bibasilar opacities suggest atelectasis. ACT 112: Negative or not required by law. The above report was generated using voice recognition software. It may contain grammatical, syntax or spelling errors. Electronically signed by: Alvin Mann M.D. 11/17/2020 7:19 AM Dictated: 11/17/20710Transcribed: 11/17/20710 XR chest 1V portable HISTORY: 75 years-old Male Chest Pain acute atypical chest pain COMPARISON: CTA of the chest of same day TECHNIQUE: Portable AP view of the chest FINDINGS: Cardiac silhouette is upper limits of normal in size. Emphysema. Linear subsegmental bibasilar densities/interstitial coarsening. There is no pneumothorax, pleural effusion, or overt pulmonary edema. Degenerative changes of the shoulders and spine. Mid thoracic dextroscoliosis. IMPRESSION: 1. Linear bibasilar densities suggest atelectasis/scarring. 2. Mild emphysema. ACT 112: Negative or not required by law. The above report was generated using voice recognition software. It may contain grammatical, syntax or spelling errors. Electronically signed by: Alvin Mann M.D. 11/17/2020 7:54 AM Dictated: 11/17/20 0754Transcribed: 11/17/20 075 Hospital Course (1) Left-sided chest pain: (2) Abnormal ECG: Present on admission with chest pain EKG showed some ST elevation in the inferior leads, but the recent EKG on 10/29/[address] elevation in the inferior leads, but there are more pronounced. Heart alert was called on presentation, but because his symptoms are from yesterday afternoon and still his troponin is negative, cath was deferred. His initial COVID test came back positive with Kumar test, but Cepheid test came back negative. CTA chest was negative for PE Troponin x 5 negative Pt was starting on IV heparin drip, then discontinued Echo showed normal LV chamber size with moderate concentric LVH. Normal LV systolic function. Ejection fraction 60 to 65%. No segmental left ventricular wall motion abnormality. Grade I Diastolic Dysfunction Nonischemic nuclear stress test done today Continue aspirin, plavix and statin Case discussed with cardiology Ok from cardiology standpoint to discharge home Follow up with cardiology in 1 month (3) BPH (benign prostatic hyperplasia): Continue Proscar and Flomax. (4) Hypertension: Continue his lisinopril, hydrochlorothiazide, amlodipine. Continue monitor BP (5) Carotid atherosclerosis: status post recent right carotid stent. Continue aspirin, Plavix, and statin. Will monitor closely for any nose bleeding. Follow up with vascular surgery. Abnormal COVID 19 positive Repeat COVID 19 PCR x2 negative Advised pt to continue wearing face mask Hyperlipidemia Continue statin. Bronchitis CTA chest showed emphysema with bronchitis and mild tracheobronchial secretions. WBC elevated Rocephin was started Will transition to doxycycline Continue monitor Chronic kidney disease stage III Creatinine is 1.18 Continue monitor BMP Stable History of gout Continue probenecid. Generalized osteoarthritis Neck Pain Continue pain control. Continue Cyclobenzeprine Myelodysplastic syndrome Stable Continue follow up with the PCP Deep venous thrombosis prophylaxis On SCDs now, but was on heparin drip Disposition Discharge home today Follow up with your primary care provider on 11/20 Total Time Total Time Spent Total Time Spent (In Minutes): 35 minutes Total Time Includes: Examination of the Patient, Discharge Planning, Medication Reconciliation, Communication With Other Providers and Other Discharge Plan Discharge Items Patient Disposition: Home - Self-Care Reason For Visit: CHEST PAIN Discharge Diagnosis: (1) Left-sided chest pain: (2) Abnormal ECG: (3) BPH (benign prostatic hyperplasia): (4) Hypertension: (5) Carotid atherosclerosis: (6) Hyperlipidemia (7) Bronchitis (8) History of gout (9) Neck Pain Activity: Resume your previous activity Non-emergency contact: Primary Care Provider and General Office Associate Call non-emergency contact if: you have any medication questions and your symptoms worsen Follow-up/Referrals: Ck Bell MD [Primary Care Provider] - (Date & Time 11/21/2020 9:20 AM Provider Ck Bell MD Department General Internal Medicine [facility] ) Diet: Heart Healthy Addtl Attending Provider Instructions: Follow up with your primary care provider Dr. Bell on 11/21/2020 @ 9:20 AM Follow up with your cardiology in 1 month (please call to schedule for the appointment) Continue physical therapy for the neck tenderness Continue to wear face mask Seek medical attention if chest pain reoccurs. Pending Studies at Discharge: No Stand-Alone Forms: My 1bib, Smoking Cessation Medications and DC Order Prescriptions: New doxycycline hyclate 100 mg Capsule 100 mg PO BID 4 Days Qty: 8 RF: 0 cyclobenzaprine 10 mg Tablet 10 mg PO BID Qty: 30 RF: 0 Continued methocarbamol 500 mg tablet 500 mg PO TID PRN (Reason: muscle spasm) Qty: 20 RF: 0 lisinopril-hydrochlorothiazide 20-12.5 mg tablet 1 tab PO DAILY RF: 0 clopidogrel 75 mg tablet 75 mg PO DAILY RF: 0 amlodipine 10 mg tablet 10 mg PO DAILY RF: 0 furosemide 20 mg tablet 20 mg PO DAILY RF: 0 probenecid 500 mg tablet 500 mg PO BID RF: 0 atorvastatin 40 mg tablet 40 mg PO QPM RF: 0 finasteride 5 mg tablet 5 mg PO DAILY RF: 0 tamsulosin 0.4 mg capsule 0.4 mg PO QPM RF: 0 Aspir-Low 81 mg 81 mg PO DAILY RF: 0 Discharge Orders: Discharge Order (Routine); Ordered 11/19/20 Ordered By: Benito Coughlin Admission Data Admit Date/Time: 11/17/20 02:30 Attending Provider: Benito Coughlin Admit Provider: Elias Luther Primary Care Provider: Ck Bell Other Providers: Elias Luther ; Gee Coburn ; Rob Nolasco ; Enrico Bass ; Cruz Grubbs ; TraceeKofi arriaga ; Bobo Ravi ; Ursula An ; Audrey Villagran ; Ming Gaston ; Adriano Quick Other Interventions: Discharge Summary Assessment (RN) Last Done: 11/19/20 14:20
== END 2020-11-19 15:01 | disposition home or self-care (01) ==
LOC: ED 23:44 → 2S 23:44 → SUATTDRO 11-17 02:30 → 2S 11-17 05:54